=== PATIENT | female | born 1975 | race Caucasian/White ===

== ENCOUNTER 2022-06-17 12:41 | Day surgery (SDC) | payer BC ==
[~2022-06-17] VITALS: Ht 165.1 cm; Wt 111.2 kg
[~2022-06-17 12:41] MED LIST: HYDCHL12.5 PO; LISI5 PO
[2022-06-17] MEDS ORDERED: BUPR75 (13:00)
== END 2022-06-17 14:35 | disposition home or self-care (01) ==
LOC: ORSCSDS 12:41
PROVIDERS: Internal Medicine Gastroenterology
PROC: 0DJD8ZZ Inspection of Lower Intestinal Tract, Via Natural or Artificial Opening Endoscopic (ICD-10-PCS; principal; 2022-06-17 14:00)
DX: Z12.11 Encounter for screening for malignant neoplasm of colon (principal); I10 Essential (primary) hypertension; E66.9 Obesity, unspecified; Z68.41 Body mass index [BMI] 40.0-44.9, adult; Z79.899 Other long term (current) drug therapy
CPT/HCPCS: J2704; J7120

== ENCOUNTER 2024-03-01 06:14 | Day surgery (SDC) | payer BC ==
[2024-03-01] VITALS (15 sets, daily range): BP systolic 105–161; BP diastolic 79–94
[~2024-03-01] VITALS: Ht 162.6 cm; Wt 102.6 kg
[~2024-03-01 06:14] MED LIST changes: +ALBU90OI INH; +ALLEGRA ALLERG180 MG PO; +ALLERCLEAR10 MG PO; +AMLO5 PO; +BUPR150ER PO; +CIDAFLEX TABLE1 EAC1 PO; +CO Q-10 100 MG1 EAC1 PO; +DULO30 PO; +ESTROVEN PO; +FAMO20 PO; +FERSU300 PO; +GABA100 PO; +GABA300 PO; +IBUP800 PO; +KRILL OIL500 MG PO; -LISI5 PO; +LISINOPRIL-HCT1 EACH PO; +MELO7.5 PO; +MERIBIN5 MG PO; +NITR.4SL SL; +OXYC5 PO; +TURMERIC PO; +[UNRECOGNIZED DRUG - OTHER] PO
[2024-03-01] MEDS ORDERED: CeFAZolin Sodium 2,000 MG in NS 100 ML IV SCH (06:20)
[2024-03-01] MEDS ORDERED: Lactated Ringer's 1,000 ML IV SCH ×2 (06:20→10:15)
[2024-03-01] MEDS ORDERED: GABA300 PO (06:34)
[2024-03-01] MEDS ORDERED: HYDROmorphone HCl/Pf 1MG SYR ONE (07:00)
[2024-03-01] MEDS ORDERED: Sugammadex Sodium 200 MG/2ML SDV (100 MG/ML) ONE (07:00)
[2024-03-01] MEDS ORDERED: propofoL 20 ML IV ONE (07:00)
[2024-03-01] MEDS ORDERED: FentaNYL Citrate 50 MCG/ML 2 ML Injection ONE (07:00)
[2024-03-01] MEDS ORDERED: Midazolam HCl 1MG / ML 2ML Vial ONE (07:01)
[2024-03-01] MEDS ORDERED: Dexamethasone Sod Phos 10 MG/ML 1ML VIAL ONE (07:01)
[2024-03-01] MEDS ORDERED: Ondansetron HCl 2 MG / ML 2ML Vial ONE (07:01)
--- NOTE | 2024-03-01 07:01 | NUR ---
History, Chart, Medications and Allergies reviewed before start of procedure. Pre-Op teaching done. Pt verbalizes understanding. Patient confirms NPO status and agrees with scheduled surgery. PT BELONGINGS BAG PLACED UNDER GURNEY. PT CELL PHONE GIVEN TO AT BS.
[2024-03-01] MEDS ORDERED: Rocuronium Bromide 10 MG/ML 5ML Injection IV ONE (07:06)
[2024-03-01] MEDS ORDERED: Albuterol HFA200 ACT/6.7 GM INH INH PRN (07:50)
[2024-03-01] MEDS ORDERED: HydroCHLOROthiazide 25 mg Tab PO SCH (09:00)
[2024-03-01] MEDS ORDERED: Bupivacaine 0.5% HCl 5 MG/ML 30MLVIAL INJ ONE (09:17)
[2024-03-01] MEDS ORDERED: Ibuprofen 400 MG Tab PO PRN (10:05)
[2024-03-01] MEDS ORDERED: Ketorolac Tromethamine 30mg Vial IV PRN ×2 (10:05→10:50)
[2024-03-01] MEDS ORDERED: OxyCODONE HCL 5 MG TAB PO PRN (10:10)
[2024-03-01] MEDS ORDERED: FLU VACC TS2024-25(6MOS UP)/PF 45 MCG/0.5 ML SYRINGE IM SCH (10:10)
[2024-03-01] MEDS ORDERED: Estradiol 0.1 MG/24 HR Patch TOP SCH (10:10)
[2024-03-01] MEDS ORDERED: Acetaminophen 500 MG Tab PO PRN (10:10)
[2024-03-01] MEDS ORDERED: Ondansetron 4 MG TAB PO PRN (10:10)
[2024-03-01] MEDS ORDERED: HYDROmorphone HCl/Pf 1MG SYR IV PRN (10:10)
[2024-03-01] MEDS ORDERED: DiphenhydrAMINE HCL 25 MG Cap PO PRN (10:10)
[2024-03-01] MEDS ORDERED: Simethicone 80 MG Chew PO PRN (10:10)
[2024-03-01] MEDS ORDERED: Metoclopramide HCl 5MG / ML 2ML Vial IV PRN (10:15)
[2024-03-01] MEDS ORDERED: Ondansetron HCl 2 MG / ML 2ML Vial IV PRN (10:15)
[2024-03-01] MEDS ORDERED: Naloxone HCl 0.4MG / ML 1ML Vial IV PRN (10:15)
[2024-03-01] MEDS ORDERED: Metoclopramide HCl 10 MG Tab PO PRN (10:15)
[2024-03-01] MEDS ORDERED: Bupivacaine 0.5% HCl 5 MG/ML 30MLVIAL ONE (10:36)
[2024-03-01] MEDS ORDERED: ALORA1 EA10 TOP (14:46)
--- NOTE | 2024-03-01 15:31 | NUR ---
DISCHARGE EATING, DRINKING, & VOIDING. PAIN WELL CONTROLLED. EXCITED FOR DC. AT SIDE. ESCORTED OUT VIA WC.
[2024-03-01] MEDS ORDERED: buPROPion HCL 150 MG TAB.SR.12H PO SCH (21:00)
[2024-03-01] MEDS ORDERED: Gabapentin 300 MG Cap PO SCH (21:00)
[2024-03-01] MEDS ORDERED: AmLODIPine Besylate 5 MG Tab PO SCH (21:00)
[2024-03-02] MEDS ORDERED: Lisinopril 20 MG Tab PO SCH (09:00)
[2024-03-02] MEDS ORDERED: DULoxetine HCL 30 MG Cap DR PO SCH (09:00)
[2024-03-02] MEDS ORDERED: Loratadine 10 MG Tab PO SCH (09:00)
== END 2024-03-01 15:31 | disposition home or self-care (01) ==
LOC: ORSCMMR 06:14 → ORD 10:00 → SURS 10:56 → ORSCMMR 15:31
PROVIDERS: Obstetrics & Gynecology
PROC: 8E0W4CZ Robotic Assisted Procedure of Trunk Region, Percutaneous Endoscopic Approach (ICD-10-PCS; principal; 2024-03-01 07:30)
PROC: 0UT9FZZ Resection of Uterus, Via Natural or Artificial Opening With Percutaneous Endoscopic Assistance (ICD-10-PCS; principal; 2024-03-01 07:30)
PROC: 0UT7FZZ Resection of Bilateral Fallopian Tubes, Via Natural or Artificial Opening With Percutaneous Endoscopic Assistance (ICD-10-PCS; principal; 2024-03-01 07:30)
PROC: 0UT2FZZ Resection of Bilateral Ovaries, Via Natural or Artificial Opening With Percutaneous Endoscopic Assistance (ICD-10-PCS; principal; 2024-03-01 07:30)
DX: N93.9 Abnormal uterine and vaginal bleeding, unspecified (principal); D50.9 Iron deficiency anemia, unspecified; N84.0 Polyp of corpus uteri; N73.6 Female pelvic peritoneal adhesions (postinfective); N83.292 Other ovarian cyst, left side; N83.291 Other ovarian cyst, right side; N83.8 Other noninflammatory disorders of ovary, fallopian tube and broad ligament; I10 Essential (primary) hypertension; Z79.899 Other long term (current) drug therapy; E66.01 Morbid (severe) obesity due to excess calories; Z68.38 Body mass index [BMI] 38.0-38.9, adult
CPT/HCPCS: 88307; A9270; J0690; J1100; J1171; J2250; J2405; J2704; J3010; J7120